=== PATIENT | female | born 1990 | race Caucasian/White ===

== ENCOUNTER 2017-01-11 07:27 | Outpatient (CLI) | payer OTHER, MEDICAID ==
[2017-01-11 19:50] LABS: THYROID STIMULATING HORMONE 8.33 uIU/mL (0.34-5.60)
== END 2017-01-11 07:28 | disposition home or self-care (01) ==
LOC: LAB.N 07:27
PROVIDERS: ATTEND Nurse Practitioner Family
DX: E03.9 Hypothyroidism, unspecified (principal)
CPT/HCPCS: 36415; 84439; 84443

== ENCOUNTER 2017-11-14 18:02 | Outpatient (CLI) | payer OTHER, MEDICAID ==
[2017-11-14 18:42] LABS: BILIRUBIN,URINE NEGATIVE (NEGATIVE); GLUCOSE, URINE (UA) NEGATIVE (NEGATIVE); KETONES,URINE (UA) TRACE mg/dL (NEGATIVE); LEUKOCYTE ESTERASE, URINE NEGATIVE (NEGATIVE); MUDS CUTOFF CONCENTRATIONS CUTOFF CONC BELOW:; NITRITE,URINE NEGATIVE (NEGATIVE); OCCULT BLOOD,URINE NEGATIVE (NEGATIVE); PROTEIN,URINE TRACE mg/dL (NEGATIVE); UROBILINOGEN,URINE 0.2 (NORMAL) E.U./dL (NORMAL)
[2017-11-14 18:43] LABS: BASOPHILS % (AUTO) 0.4 %; EOSINOPHILS % (AUTO) 0.4 %; HGB - HEMOGLOBIN 13.3 g/dL (12.0-16.0); LYMPHOCYTES % (AUTO) 19.4 %; MEAN CORPUSCULAR HEMOGLOBIN 31.2 pg (27.0-31.0); MEAN CORPUSCULAR VOLUME 91.6 fL (81.0-99.0); MEAN PLATELET VOLUME 8.8 fL (7.9-10.8); MONOCYTES # (AUTO) 0.8 10^3/uL (0.0-1.0); MONOCYTES % (AUTO) 7.8 %; NEUTROPHILS # (AUTO) 7.4 10^3/uL (1.5-6.6); PLT - PLATELET COUNT 409 10^3/uL (130-450); RED BLOOD COUNT 4.25 10^6/uL (4.20-5.40); RED CELL DISTRIBUTION WIDTH 12.7 % (12.0-15.0); WHITE BLOOD COUNT 10.3 x10^3/uL (4.8-10.8)
[2017-11-14 18:54] LABS: AMPHETAMINE SCREEN,URINE NEGATIVE (NEGATIVE); BACTERIA,URINE None Seen /HPF (None Seen); BENZODIAZEPINES SCREEN, URINE NEGATIVE (NEGATIVE); CLARITY,URINE CLEAR (CLEAR); COCAINE SCREEN URINE NEGATIVE (NEGATIVE); METHADONE SCREEN, URINE NEGATIVE (NEGATIVE); METHAMPHETAMINES SCREEN, URINE NEGATIVE (NEGATIVE); OPIATE SCREEN, URINE NEGATIVE (NEGATIVE); OXYCODONE SCREEN, URINE NEGATIVE (NEGATIVE); PROPOXYPHENE SCREEN, URINE NEGATIVE (NEGATIVE); RBC,URINE 0-5 /HPF (0-5); SQUAMOUS EPITHELIAL CELL,UR FEW Squamous (<= Few); TRICYCLIC ANTIDEPRESSANT,URINE NEGATIVE (NEGATIVE)
[2017-11-15 10:39] LABS: HEPATITIS B SURFACE ANTIGEN NON-REACTIVE (NON-REACTIVE); HEPATITIS C ANTIBODY NON-REACTIVE (NON-REACTIVE)
[2017-11-15 18:26] LABS: HIV AG/AB 4TH GEN NON-REACTIVE (NON-REACTIVE)
== END 2017-11-14 18:03 | disposition home or self-care (01) ==
LOC: LAB 18:02
PROVIDERS: ATTEND Nurse Practitioner Obstetrics & Gynecology
DX: Z36.9 Encounter for antenatal screening, unspecified (principal)
CPT/HCPCS: 36415; 80306; 81001; 81599; 85025; 86592; 86762; 86803; 86850; 86900; 86901; 87340; 87389

== ENCOUNTER 2017-11-15 13:01 | Outpatient (CLI) | payer OTHER, MEDICAID ==
--- NOTE | 2017-11-16 10:13 | Ultrasound Report ---
OB ULTRASOUND: 11/15/2017 CLINICAL INDICATION: anatomy, late care. TECHNIQUE: Real-time scanning was performed with contracts representative static images obtained. LAST MENSTRUAL PERIOD:between 03/07/2017 -04/05/2017 - unknown Clinical Age: -- US Age: 34 weeks 1 day EFW Hadlock: 2321 grams Heart Rate: 135 bpm US EDC: 12/26/2017 BPD Hadlock: 33 weeks 4 days; Mean mm 84 HC Hadlock: 34 weeks 2 days; Mean mm 307 AC Hadlock: 33 weeks 3 days; Mean mm 294 FL Hadlock: 35 weeks 0 days; Mean mm 68 Presentation: cephalic Placental Location: anterior Cervical Length: TA 3.6 cm Amniotic Fluid: AURELIO 15.8 cm; subjectively normal; MVP 5.9 cm FINDINGS There is a single viable intrauterine gestation, in cephalic presentation. heart rate is 135 BPM. The placenta is anterior, without evidence of previa. Amniotic fluid volume is subjectively normal, with a deepest pocket of 5.9 cm. By size, the fetus measures 34 weeks 1 day (uncertain LMP). Estimated weight by Hadlock method is 2321 grams. The following anatomic structures were visualized and appear normal: The intracranial contents, including the ventricles; the lips and orbits; the spine; the heart, including 4 chamber view and left ventricular outflow tract, and diaphragm; the abdominal contents, including the stomach, the bilateral kidneys, and urinary bladder, as well as a normal 3 vessel cord insertion. anatomy is limited by late dates and position, with the cerebellum, hands, right ventricular outflow tract, situs, and lower leg/foot relationships not well visualized. No free fluid or adnexal lesion is appreciated. IMPRESSION: SINGLE VIABLE INTRAUTERINE GESTATION, MEASURING 34 WEEKS 1 DAY BY SIZE. LIMITED ANATOMIC SURVEY, WITH NO GROSS ABNORMALITY APPRECIATED. TD: 11/15/2017 14:52 [facility]ENTERMatt
== END 2017-11-15 13:02 | disposition home or self-care (01) ==
LOC: DI 13:01
PROVIDERS: ATTEND Nurse Practitioner Obstetrics & Gynecology
DX: Z36.9 Encounter for antenatal screening, unspecified (principal)
CPT/HCPCS: 76811

== ENCOUNTER 2017-11-21 08:00 | Outpatient (CLI) | payer OTHER | END 2017-11-21 08:01 | LOC: LAB.R 08:00 | PROVIDERS: ATTEND Registered Nurse | DX: Z34.83 Encounter for supervision of other normal pregnancy, third trimester (principal); E03.9 Hypothyroidism, unspecified | CPT/HCPCS: 87081; 87491; 87591 ==

== ENCOUNTER 2017-11-28 10:10 | Outpatient (CLI) | payer OTHER, MEDICAID ==
[2017-11-28 10:49] LABS: ALBUMIN 2.9 g/dL (3.2-5.5); ALBUMIN/GLOBULIN RATIO 0.6 (1.0-2.2); BILIRUBIN,TOTAL 0.5 mg/dL (0.2-1.0); CALCIUM 9.6 mg/dL (8.5-10.3); CREATININE 0.7 mg/dL (0.4-1.0); TOTAL PROTEIN 7.4 g/dL (6.7-8.2)
== END 2017-11-28 10:11 | disposition home or self-care (01) ==
LOC: LAB 10:10
PROVIDERS: ATTEND Nurse Practitioner Obstetrics & Gynecology
DX: L29.9 Pruritus, unspecified (principal)
CPT/HCPCS: 36415; 80053; 82239

== ENCOUNTER 2017-11-29 11:02 | Outpatient (CLI) | payer OTHER, MEDICAID | END 2017-11-29 11:03 | disposition critical access hospital (66) | LOC: EMS 11:02 | PROVIDERS: ATTEND Surgery | DX: R10.9 Unspecified abdominal pain (principal); O99.89 Other specified diseases and conditions complicating pregnancy, childbirth and the puerperium | CPT/HCPCS: A0425; A0427 ==

== ENCOUNTER 2017-11-29 11:23 | Inpatient (IN) | payer OTHER, MEDICAID ==
[2017-11-29] MEDS ORDERED: LACTATED RINGERS 1,000 ML IV ONE ×2 (12:12→12:21)
--- NOTE | 2017-11-29 12:17 | HISTORY & PHYSICAL EXAMINATION ---
Admit History - Instructions [place]/Slash: -Left hand click circles element as positive or present. -Right hand click slashes element as negative or not present. - Visit Reason Visit Reason: Contractions - : 1 Parity: 0 Premature: 0 Ectopic: 0 : 0 Care: positive: [facility] Risk/History: positive: Other (Limited care) Complications This : positive: <than 3 visits Smoking Status: Never smoker - Mother's Labs Mother's RH: positive: Negative GBS: positive: Group B Strep Positive Rubella Status: positive: Non-immune - Other Maternal History Other Maternal History: HPI: This 27yo @ 37.2 wks gestation by 34 wk U/S. She presents via ambulance with c/o contractions every 10 minutes. She reports +FM. Denies VB or Lof. She reports contractions every 10 minutes and rating pain of contractions 10/10 pain. LMP: Unsure - 03/2017 Initial ultrasound consistent with 03/2017 dating Labs A pos, antibody neg Hgb: 13.3 Hct:39.0 Rubella nonimmune HIV neg Hep C neg PLT 409 RPR nonreactive Hep B non-reactive GC/CT negative AST: 49 ALT: 88 Bile Acids: Pending GBS positive PMHx: Vulnerable adult Hypothyroidism per patient Poor Historian Surgical Hx: None reported Medications: Levothyroxine - unsure dosage. vitamin U/S: anterior placenta, no previa. AURELIO subjectively normal. EFW 2300g. FAS WNL however multiple systems were not well visualized due to advanced gestation Physical Exam: Lungs CTAB, Heart RRR w/o M/G/R. Bilateral LEs no edema. Abdomen soft, gravid, nontender. Potential cognitive delay. Poor hygiene. SVE: 2/50/-2, vertex, BOW intact FHR baseline 140, moderate variability, + accels, repeat variable decelerations to the 120s. Improved variability and no decelerations noted after initiation of fluid bolus. A: 27yo with 37.2wk IUP Prodromal labor Concerning strip with deceleration from 130s into the 120s Complex social situation Vulnerable adult GBS positive P: Dr. Pack consulted due to recurrent late deceleration Initiation of 1000mL of IV fluid bolus Initiation of penicillin for GBS prophylaxis CPS consult at delivery Meds/Allgy - Home Medications Home Medications: Ambulatory Orders Medication Instructions Recorded Confirmed Lamivudine/Zidovudine 1 each PO BID #60 tablet 09/23/14 [Lamivudine-Zidovudine Tablet] Levothyroxine [Synthroid] 75 mcg PO DAILY 09/23/14 09/23/14 - Allergies Allergies/Adverse Reactions: Allergies Allergy/AdvReac Type Severity Reaction Status Date / Time No Known Drug Allergies Allergy Verified 09/23/14 20:35 Physical - Abdominal Exam Vital Signs: Temp Pulse Resp BP Pulse Ox 37 C 82 130/79 97 11/29/17 11:36 11/29/17 11:36 11/29/17 11:36 11/29/17 11:36
[2017-11-29] MEDS ORDERED: SODIUM CHLORIDE FLUSH 0.9% 10 ML SYRINGE ONE (12:21)
--- NOTE | 2017-11-29 12:37 | CONSULTATION NOTE ---
Referring Provider [facility] Ref[facility] Provider[facility] Consult Date: 11/29/17 Chief Complaint - Chief Complaint Chief Complaint: Late decelerations History - Past Medical History Endocrine/Autoimmune: reports: HyPOthyroidism - POLST Patient has POLST: No Meds/Allgy - Home Medications Home Medications: Ambulatory Orders Medication Instructions Recorded Confirmed Lamivudine/Zidovudine 1 each PO BID #60 tablet 09/23/14 [Lamivudine-Zidovudine Tablet] Levothyroxine [Synthroid] 75 mcg PO DAILY 09/23/14 09/23/14 - Allergies Allergies/Adverse Reactions: Allergies Allergy/AdvReac Type Severity Reaction Status Date / Time No Known Drug Allergies Allergy Verified 09/23/14 20:35 Exam - Vital Signs Vital Signs: Vital Signs x48h Temp Pulse BP Pulse Ox 11/29/17 11:36 98.6 F 82 130/79 97 Conclusion/Plan - Diagnosis Diagnosis: Late decelerations - Other Other Results/Comments: 27 yo with a 37w2d IUP Prodromal labor (50/-2) Concerning heart tracing GBS negative Vulnerable adult-- will need to call manager social work and CPS after delivery Discussed with the patient the possibility of a delivery if fetus shows signs of a nonreassuring tracing Recommend fluid bolus and continued monitoring Rule out labor Consult dictated: [id number]
[2017-11-29] MEDS ORDERED: SODIUM CHLORIDE FLUSH 0.9% 10 ML SYRINGE IVP PRN (14:38)
--- NOTE | 2017-11-29 14:46 | PROVIDER PROGRESS NOTE ---
Subjective - Subjective Subjective: S: Breathing through contractions. David supportive at the bedside. O: FHR baseline 130s, moderate variability with some minimal variability present. + accels, occasional late decelerations, occasional early decelerations , occasional variable decelerations. Contractions palpate moderate every 2-3 minutes lasting 60-90 seconds with soft resting tone. SVE 4/90/-2, soft, mid- position, vertex, BOW intact A: 27yo @ 37.2 weeks gestation by 34 wk U/S GBS positive Vulnerable adult Potential cognitive delay Complex social situation P: Admit to L&D for management. Initiate penicillin for GBS prophylaxis Dr. Pack consulted and aware of patient status. Continuous monitoring CPS consult at delivery. Epidural per maternal request. Objective - Vital Signs/Intake & Output Vital Signs: Vital Signs x48h Temp Pulse Resp BP Pulse Ox 11/29/17 12:59 84 20 118/77 98 11/29/17 11:36 37 C 82 130/79 97
[2017-11-29] MEDS ORDERED: LACTATED RINGERS 1,000 ML IV SCH (15:00)
[2017-11-29] MEDS ORDERED: PENICILLIN G POTASSIUM 5,000,000 UNIT in SODIUM CHLORIDE 0.9% MINIBAG 100 ML IV ONE (15:00)
[2017-11-29 15:01] LABS: BASOPHILS # (AUTO) 0.1 10^3/uL (0.0-0.1); EOSINOPHILS # (AUTO) 0.1 10^3/uL (0.0-0.7); EOSINOPHILS % (AUTO) 0.4 %; HGB - HEMOGLOBIN 12.6 g/dL (12.0-16.0); LYMPHOCYTES # (AUTO) 1.8 10^3/uL (1.5-3.5); LYMPHOCYTES % (AUTO) 14.6 %; MEAN CORPUSCULAR HEMOGLOBIN 31.4 pg (27.0-31.0); MEAN CORPUSCULAR HGB CONC 34.3 g/dL (32.0-36.0); MEAN CORPUSCULAR VOLUME 91.4 fL (81.0-99.0); MEAN PLATELET VOLUME 8.9 fL (7.9-10.8); MONOCYTES # (AUTO) 0.8 10^3/uL (0.0-1.0); MONOCYTES % (AUTO) 6.2 %; NEUTROPHILS # (AUTO) 9.5 10^3/uL (1.5-6.6); NEUTROPHILS % (AUTO) 77.8 %; PLT - PLATELET COUNT 330 10^3/uL (130-450); RED BLOOD COUNT 4.02 10^6/uL (4.20-5.40); WHITE BLOOD COUNT 12.3 x10^3/uL (4.8-10.8)
--- NOTE | 2017-11-29 15:33 | CONSULTATION NOTE ---
DATE OF SERVICE: 11/29/2017 Physician: Kaylie Pack DO IDENTIFICATION: A 27-year-old G1, P0, with a 37 and 2/7 week intrauterine . EDC is 12/18/2017 established by a 34 week ultrasound. HISTORY OF PRESENT ILLNESS: She is a patient of [facility], who presented via ambulance today. She noted contractions at work and was concerned about the well being of her baby. Her has been remarkable for late care. She did not realize that she was and finally presented to us on 11/14/2017 with unsure LMP. She is also a poor historian and is very concerning in being a vulnerable adult. In any event, her ultrasound of that day revealed a single viable intrauterine at 34 weeks, 4 days and EDC of 12/18/2017. There was no placenta previa noted and the AURELIO was within normal limits. Patient was taken to triage where it was of concern that her baby was having some late decelerations. I personally reviewed the strip and saw that this fetus is baseline in the 130s, with good long-term variability and there were accels. However, there are very subtle late decelerations to the 120s. So far they are occurring every 3-7 minutes. She is having irregular contractions occurring perhaps every 5 minutes. Cervical examination showed that she was 2, 50 and -2. Baby was noted to be vertex. I spoke to patient who was alone in her triage room. I discussed with her my concern about the late decelerations and the baby not tolerating labor given her cervical examination. I did discuss with her that it may be in her and her baby's best interest to have a delivery in order to have a healthy mom and baby. I discussed with patient in detail what a delivery is. I explained to her the risks, benefits, alternatives, indications, expectations of surgery. Included in our discussion were the risk of hemorrhage, infection, damage to surrounding organs. All of her questions were answered to her satisfaction, she verbalized her understanding. I told patient that I and Carine would be carefully monitoring the strip and will intervene as necessary. PAST MEDICAL HISTORY 1. Vulnerable adult with limited intellectual capacity. 2. Poor historian. 3. Hypothyroidism. PAST SURGICAL HISTORY: None. ALLERGIES: NO KNOWN DRUG ALLERGIES. MEDICATIONS: None. SOCIAL HISTORY: Very complex. 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 The father of the baby is noted to be an older adult male named Wilton. Wilton is actually currently to a woman named Juice. It sounds like Wilton and his have children with their relationship and with other individuals. However, it does not sound like Wilton or Juice have custody of their children. It is my understanding that Wilton' , Juice, intends to adopt this baby. PAST OBSTETRICAL HISTORY: Current. PAST GYNECOLOGICAL HISTORY: She denies any abnormal Pap smears or sexually transmitted diseases. FAMILY HISTORY: Unknown. REVIEW OF SYSTEMS: She denies any nausea, vomiting, fevers, chills, diarrhea or constipation. PHYSICAL EXAMINATION VITAL SIGNS: Temperature is 98.6, heart rate 82, blood pressure 130/79, O2 saturation 97%. GENERAL: Patient is a well-developed, well-nourished, female, in no apparent distress. She does wince when she experiences a contraction. HEENT: Within normal limits. She does have red hair. ABDOMEN: Gravid, nontender. Estimated weight is 2800 grams. LABORATORY DATA: She is A positive, antibody screen negative. HIV negative. Rubella nonimmune. Hemoglobin and hematocrit were 13.3 and 39.0 on 11/14/2017. Her platelet count was 409. RPR is nonreactive. Hepatitis B surface antigen is nonreactive. Chlamydia and gonorrhea were negative. GBS is positive. Thyroid function tests were within normal limits. 11/24/2017 labs show creatinine 0.7, glucose 76. Potassium 4.0 , ALT 88, AST of 49, bile acids are pending. U-tox was negative 11/15/2017. OB anatomical survey revealed a 34-week, 1 day intrauterine with EFW of 2321 grams and a heart rate of 135 beats per minute. EDC is 2017. Anterior placenta. A transabdominal cervix is 3.6 cm, AURELIO 15.8 cm with a most vertical pocket of 5.9 cm. The anatomical survey in and of itself was within normal limits; however, the cerebellum, hands, right ventricular outflow tract, situs and lower leg and foot relationships were not well visualized. ASSESSMENT 1. A 27-year-old G1, P0 with a 37 and 2/7 week intrauterine . 2. Prodromal labor. 3. Concerning strip with subtle late decelerations from the 130s to the 120s. 4. GBS positive. 5. Vulnerable adult with a complex social situation. 6. Patient with questionable hypothyroidism. PLAN 1. We will continue monitoring the patient. 2. Anticipated giving a fluid bolus. 3. We will continue to monitor the patient. If the fetus shows definite signs of a nonreassuring tracing we will proceed to immediate delivery. However, should the fetus have improvement with further surveillance, we will treat as appropriate. 4. Convention Planner and Child Protective Services are to be involved after delivery of the baby. 5. We will call anesthesia and inform them of a potential delivery. TD: 11/29/2017 15:32 WILLIAMS
--- NOTE | 2017-11-29 16:19 | PROVIDER PROGRESS NOTE ---
Labor Progress Note - Uterine Monitoring Uterine Monitoring Mode: positive: External toco Contraction Frequency (min/apart): Q1-2 (spontaneous) Contraction Intensity: positive: Moderate to strong Uterine Resting Tone: positive: Soft - Monitoring Monitor Mode: positive: External ultrasound, Spiral electrode (Placed after deceleration to 40's) Heart Rate Variability: positive: Moderate (6-25 bmp) Accelerations: positive: Present, 15x15 Decelerations: positive: Late (After SROM) Strip Review: positive: Category II - Vaginal Exam Dilation (in cm): 7 Station: -1 - Labor Progress Note Labor Progress Note/Additional Text: 27 yo with a 37w2d IUP Active labor GBS positive, 1st dose of PCN (5 million units) in at 16:10. 2nd dose (2.5 million units) due at 20:10. SROM- clear Late deceleration due to SROM FSE placed FHT's back up after intrauterine resuscitation with rotation, O2 Anesthesia called for epidural placement Closely monitor. Proceed to CD if NRFHT's Need social work professor and CPS after delivery Will be available for back up of midwifery
--- NOTE | 2017-11-29 16:30 | PROVIDER PROGRESS NOTE ---
Labor Progress Note - Uterine Monitoring Uterine Monitoring Mode: positive: External toco Contraction Frequency (min/apart): 2-4 Contraction Intensity: positive: Strong Uterine Resting Tone: positive: Soft - Monitoring Monitor Mode: positive: External ultrasound Heart Rate Baseline: 130 Heart Rate Variability: positive: Moderate (6-25 bmp) Accelerations: positive: Present, 15x15 Decelerations: positive: Late, Variable - Vaginal Exam Dilation (in cm): 8 Effacement (%): 100 Station: -1 Cervical Position: Anterior - Labor Progress Note Labor Progress Note/Additional Text: S: Pt breathing through contractions and tolerating well. Requesting epidural. David and Wilton at bedside. David states "What about the test? Ask about the test." Wilton states "what about paternity test?" "I am pretty sure it's mine but I don' t want to get into a situation in a couple of years". O: FHR baseline 130s, moderate variability, + accels, occasional variable decelerations, occasional late decelerations. Prolonged late deceleration to 70bpm with immediate acceleration and return to baseline with moderate variability immediately following maternal SROM. SROM noted to be a moderate amount of clear fluid. FSE placed due to difficulty picking up heart rate with external monitor. Patient rotated and O2 applied. Dr. Pack, attending physician to the bedside. SVE 8/100/-1, anterior, soft. Anesthesia called for placement of epidural. A: 27yo at 37.2wks gestation by 34 week ultrasound Active labor SROM moderate amount of clear fluid Category II tracing Continuous monitoring via FSE
[2017-11-29] MEDS ORDERED: fent/BUPIV 2 MCG/0.125% 250 ML EP ONE (16:36)
[2017-11-29] MEDS ORDERED: OXYTOCIN/SODIUM CHLORIDE 500 ML IV ONE (17:00)
[2017-11-29] MEDS ORDERED: OXYTOCIN/SODIUM CHLORIDE 250 ML IV ONE (17:29)
--- NOTE | 2017-11-29 17:56 | DELIVERY NOTE ---
Delivery Note - Labor Labor: positive: Spontaneous - Delivery Method Delivery Method: positive: Spontaneous vaginal delivery - Presentation Presentation: positive: Vertex, PERRY - left occiput anterior - Nuchal Cord Nuchal Cord: positive: Present - Amniotic Fluid Description Amniotic Fluid Description: positive: Clear - Episiotomy Type Episiotomy Type: positive: None - Laceration Laceration: positive: 1st degree - Suture Suture Type: positive: Vicryl Suture Size: positive: 3-0 - Delivery Outcome Delivery Outcome: positive: Livebirth - [place]: positive: Placed in direct skin contact with mother, Bulb syringe, Stimulated, Warmed, [place] used, Warmer used sex: positive: Female - Cord Cord: positive: 3 vessels - Placenta Placenta: positive: Intact, Spontaneous - Estimated Blood Loss Estimated Blood Loss (in cc): 250 - Post Delivery Events Post Delivery Events: positive: No post delivery events - Delivery Comments (Free Text/Narrative) Delivery Comments (Free Text/Narrative): Labor: This 27yo by 34 weeks U/S presented at 1110 by ambulance after complaining of contractions at work. Cervix was 2/50/-2, vertex, and membranes were intact. She was monitoring for 2 hours and repeat SVE was 4/90/-2, vertex, soft, and membranes remained intact. She was admitted to labor and delivery for expectant management. Throughout labor FHR demonstrated an overall category II heart rate pattern with FHR baseline 140s, moderate variability, +accels, occasional late decelerations, occasional early decelerations, and occasional variable decelerations. FSE was attached following SROM, moderate amount of clear fluid, as the FHR decreased to 60 bpm and there was some difficulty tracing the heart rate by external ultrasound. Patient was rotated and O2 was administered by mask. SVE was 8/100/-1 and anesthesia was called to the bedside for placement of an epidural per patient request. Epidural placed without difficulty. Dr. Pack, attending physician, aware of patient status throughout labor course and in agreement with continued plan of care. Normal of viable female infant at 1659 on 11/29/2017. The was placed on maternal abdomen, stimulated, dried, and placed skin to skin. O2 was placed near baby's face via maternal face mask. Bulb syringe was used to clear nares and mouth. 's were 6/8 at 1 and 5 minutes respectively. The umbilical cord was doubly clamped and cut by FOB at 3 minutes of life. Cord blood was obtained. Placenta delivered spontaneously and intact at 1703. 3VC. Pitocin administered via IV for hemostasis. EBL 250mL. Uterine fundus fimr and there is no excessive bleeding. The perineum, vagina, cervix were inspected and found to have a first degree midline laceration. Vaginal examination following repair was done. Tissues well approximated. Baby was moved to infant warmer due to increased heart rate and grunting for evaluation by OB RN and respiratory therapy whom were present for delivery. The baby was monitored at the infant warmer and recovered well. placed skin to skin. Family bonding well. youth services specialist consult ordered and plan to initiate phone call to CPS. Both mother and baby were left in stable condition.
[2017-11-29] MEDS ORDERED: PENICILLIN G POTASSIUM 2,500,000 UNIT in SODIUM CHLORIDE 0.9% 100ML 100 ML IV SCH (19:00)
[2017-11-29] MEDS: ACETAMINOPHEN 500 MG TABLET PO PRN (20:51)
[2017-11-29] MEDS: IBUPROFEN 800 MG TABLET PO PRN (20:51)
[2017-11-29] MEDS: SODIUM CHLORIDE FLUSH 0.9% 10 ML SYRINGE IVP SCH (21:30)
[2017-11-29] MEDS: WITCH HAZEL/GLYCERIN 1 EACH MED..PAD TOP PRN (23:47)
[2017-11-29] MEDS: HYDROCORTISONE/PRAMOXINE 10 GM PR PRN (23:47)
[2017-11-30] MEDS: ACETAMINOPHEN 500 MG TABLET PO PRN ×2 (06:45→15:39)
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
[2017-11-30] MEDS: LACTATED RINGERS 1,000 ML IV SCH ×4 (11:12→21:27)
[2017-11-30] MEDS: IBUPROFEN 800 MG TABLET PO PRN ×2 (11:20→23:23)
[2017-11-30] MEDS: SODIUM CHLORIDE FLUSH 0.9% 10 ML SYRINGE IVP SCH ×3 (11:25→21:27)
[2017-11-30] MEDS: HYDROCORTISONE/PRAMOXINE 10 GM PR PRN (12:56)
[2017-12-01] MEDS: ACETAMINOPHEN 500 MG TABLET PO PRN ×2 (00:38→09:44)
[2017-12-01] MEDS: WITCH HAZEL/GLYCERIN 1 EACH MED..PAD TOP PRN (00:41)
[2017-12-01] MEDS: IBUPROFEN 800 MG TABLET PO SCH ×2 (09:44→16:52)
[2017-12-01] MEDS: LEVOTHYROXINE 125 MCG TABLET PO SCH (13:25)
--- NOTE | 2017-12-01 17:10 | PROVIDER PROGRESS NOTE ---
Subjective - Subjective Subjective: S: Seems to be bonding well with baby. Continues to laugh inappropriately. with some difficulty. Baby latches well with nipple shield. Pt expresses continued desires to give Wilton (FOB) custody of her baby. She reports her plan is to move in with Wilton and his David. She states her visit with CPS and APS were both good today. Bleeding decreased. Pain well controlled with ibuprofen. Reports she is tired but overall feeling well. O: Heart RRR w/o M/G/R. Lungs CTAB. Abdomen soft and non-tender. Fundus firm at U-2. Bilateral LE's no edema. Poor hygiene. A: 27yo -->P1 s/p TSVD of viable female infant Apparent cognitive delay P: Continue routine pp care and medications. [facility]. There is currently a CPS hold on the baby until Monday. Desires Nexplanon for contraception. Objective - Vital Signs/Intake & Output Vital Signs: Vital Signs x48h Temp Pulse Resp BP Pulse Ox 12/01/17 09:52 36.8 C 92 16 139/77 H 98 Intake & Output: Intake & Output 11/28/17 11/29/17 11/30/17 12/01/17 23:59 23:59 23:59 23:59 Intake Total 2350 Output Total 250 600 Balance 2100 -600 - Lab Results Fish Bones: 11/29/17 14:51
[2017-12-01] MEDS ORDERED: MEASLES,MUMPS & RUBELLA VACC 0.5 ML VIAL SUBQ ONE (18:00)
[2017-12-01] MEDS: PRENATAL VITAMIN TABLET PO SCH (20:14)
[2017-12-02] MEDS: IBUPROFEN 800 MG TABLET PO SCH ×3 (01:29→15:23)
[2017-12-02] MEDS: SODIUM CHLORIDE FLUSH 0.9% 10 ML SYRINGE IVP SCH ×3 (04:23→04:25)
[2017-12-02] MEDS: LACTATED RINGERS 1,000 ML IV SCH ×2 (04:24→04:25)
[2017-12-02] MEDS: LEVOTHYROXINE 125 MCG TABLET PO SCH (06:58)
[2017-12-02 08:15] VITALS: BP 127/76
[2017-12-02] MEDS: PRENATAL VITAMIN TABLET PO SCH (10:07)
--- NOTE | 2017-12-02 10:24 | Discharge Plan ---
Discharge Plan Disposition: 01 Home, Self Care Condition: Good Diet: Regular Activity Restrictions: No Restrictions Shower Restrictions: No Driving Restrictions: No Weight Bearing: Full Weight No Smoking: If you smoke, Please STOP! Call for help. Follow-up with: Carine Sorto CNM, ARNP [Provider Admit Priv/Credential] -
--- NOTE | 2017-12-02 10:42 | PROVIDER PROGRESS NOTE ---
Subjective - Subjective Subjective: S: Bonding well with baby. with nipple shield. Baby has lost 8% of her weight and they are planning to develop a feeding plan with Dr. Cooper today. Expressing colostrum and using it to supplement the baby. Bleeding decreased and is light. Pain well controlled with ibuprofen. Some tenderness noted at perineum but she reports improvement with tucks and epifoam. David supportive at the bedside. O: Hgb 12.6; BP 127/76, T 36.8. Heart RRR w/ o M/G/R, Lungs CTAB. Abdomen soft and nontender with fundus firm at U-2. Perineum intact and repair without edema. Light lochia rubra. Bilateral LE's trace edema. A: 27yo -->P1 PPD#3 s/p TSVD of viable female Developmental delay - undiagnosed CPS hold on infant until Monday12/04/2017 P: Reviewed self care and warning signs. Rx provided for ibuprofen 600mg PO q6 hours PRN pain #30 with 2 refills. Nexplanon in patient's left arm for contraception. Discharge patient to boarder mom status. She plans to f/u with myself at [facility] in 1 week. Pt verbalized understanding and agrees to above plan. Denies further questions or concerns today. Objective - Vital Signs/Intake & Output Vital Signs: Vital Signs x48h Temp Pulse Resp BP Pulse Ox 12/02/17 08:10 36.8 C 76 16 127/76 99 12/02/17 04:55 36.7 C 66 17 117/71 99 Intake & Output: Intake & Output 11/29/17 11/30/17 12/01/17 12/02/17 23:59 23:59 23:59 23:59 Intake Total 2350 Output Total 250 600 Balance 2100 -600 - Lab Results Fish Bones: 11/29/17 14:51
[2017-12-02] MEDS ORDERED: HYDROCORTISONE 1% CREAM 28 GM TUBE PR PRN (10:43)
--- NOTE | 2017-12-02 15:26 | Labor Flowsheet ---
Labor Flowsheet Datetime Report Generated by CPN: 12/02/2017 15:26 Datetime: 12/02/2017 14:45 VITAL SIGNS NBP Sys/Brandi/Mean (mmHg): 102 : 85 : 88 Pulse: 89 LaborFlag: Labor Datetime: 12/01/2017 09:34 SpO2 (%): 98 Datetime: 11/29/2017 17:16 COMMUNICATION Communication: Call/Page Placed to Provider Provider Notified (Name): Dr. Hi Datetime: 11/29/2017 17:07 Patient Care Comments: repair Datetime: 11/29/2017 17:03 STAGE 2 Stage 2 Comments: pit up Datetime: 11/29/2017 16:45 UTERINE ACTIVITY Monitor Mode: External Frequency (min): 2-3 Quality: Strong Duration (sec): 60+ Pattern: Normal: <= 5 Contractions in 10 Minutes Resting Tone (Palpate): Relaxed ASSESSMENT A Monitor Mode: External US FHR Baseline Changes: No Baseline Change Variability: Moderate 6-25 bpm Accelerations: 15X15 Decelerations: Early; Late; Variable Actions for Decelerations: Provider Notified Category: Category II Communication Comments: Carine in room Datetime: 11/29/2017 16:41 Anesthesia Comments: test dose negative Datetime: 11/29/2017 16:40 Epidural Procedure: Test Dose Datetime: 11/29/2017 16:34 ANESTHESIA Epidural Positioning: Sitting Datetime: 11/29/2017 16:09 Notification Reason: Status; Labor Status; Pain Datetime: 11/29/2017 16:05 VAGINAL EXAM Dilatation (cm): 9.0 Effacement (%): 100 Station: -1 Exam by: layne Vaginal Bleeding: Scant Procedures: Sterile Vag Exam Datetime: 11/29/2017 16:03 Membrane Status: Ruptured Membranes Rupture Method: Spontaneous Amniotic Fluid Color: Clear Amniotic Fluid Amount: Moderate Amniotic Fluid Odor: Normal Datetime: 11/29/2017 16:01 FHR Baseline Rate : 125 Datetime: 11/29/2017 15:29 Stage of : Labor Contraction Comments: mild to moderate contractions PAIN Pain Presence: Intermittent Pain Type: Cramping Pain Location: Abdomen Pain Relief Measures: Comfort Measures Pain Coping: Talking Through Contractions; Breathing Through Contractions; Declines Medication or E pidural Pain Assessment Comments: Pt. states she wants to wait MATERNAL ASSESSMENT Level of Consciousness: Fully Conscious DTR's/Clonus: DTRs 2+ Headache: Denies Breath Sounds, Left: Clear and Equal Breath Sounds, Right: Clear and Equal Nausea/Vomiting: Present RUQ Epigastric Pain: Denies PATIENT CARE Oxygen Method: Room Air Patient Position/Activity: Right Lateral Comfort Measures: Breathing/Relaxation; Back Rub Given; Family Support
--- NOTE | 2017-12-12 12:20 | DISCHARGE SUMMARY ---
Physician: MEENA Munoz DATE OF ADMISSION: 11/29/2017 DATE OF DISCHARGE: 12/02/2017 DIAGNOSES ON ADMISSION 1. A 27-year-old G1, P0 at 37.2 weeks gestation by 34-week ultrasound. 2. Early active labor. 3. Complex social situation. 4. Limited care/late to seek care, vulnerable adult. 5. Group B strep positive. DIAGNOSES ON DISCHARGE 1. A 27-year-old G1, P1-0-0-1, status post spontaneous vaginal delivery on 11/29/2017. 2. Normal recovery. 3. Complex social situation with Social Service consult and Child Protective Services evaluation. 4. Administrative hold placed on baby by Child Protective Services. BRIEF HISTORY: She is a patient at [facility] who presented on 11/29/2017 with complaints of contractions. The patient was found to contract every 3-5 minutes, and her cervix was 2, 50, -2 vertex and membranes were intact. She was monitored for 2 hours and repeat SVE was 4, 90, -2 vertex and soft, and membranes remained intact. She was admitted to Labor and Delivery for expectant management. She spontaneously delivered a viable female at 1659 on 11/29/2017. Apgars were 6 and 8 at 1 and 5 minutes respectively. EBL was 250 mL. The perineum, vagina and cervix were inspected and found to have a first-degree midline laceration, which was repaired using 3-0 Vicryl in the usual fashion under sterile conditions. She has been doing well in her course. She is ambulating and tolerating a regular diet. She is urinating without difficulty and her lochia is normal. Her pain is well controlled with oral medications. She will be discharged to [facility] status today on day #3. She intends to follow up with myself at [facility] in 3 weeks for routine visit. She is given precautions to call if she has any worsening fevers, chills, abdominal pain, increased bleeding or foul smelling vaginal lochia. TD: 12/12/2017 12:11
== END 2017-12-02 14:50 | disposition home or self-care (01) | DRG 775 ==
LOC: WFO 11:23 → FBP 11:27 → WFO 14:37 → EEVIPCON 14:38 → FBP 14:38
PROVIDERS: ADMIT Nurse Practitioner Obstetrics & Gynecology; ATTEND Nurse Practitioner Obstetrics & Gynecology
PROC: 10E0XZZ Delivery of Products of Conception, External Approach (ICD-10-PCS; principal; 2017-11-29)
PROC: 0HQ9XZZ Repair Perineum Skin, External Approach (ICD-10-PCS; 2017-11-29)
DX: O99.824 Streptococcus B carrier state complicating childbirth (principal); O99.284 Endocrine, nutritional and metabolic diseases complicating childbirth; O76 Abnormality in fetal heart rate and rhythm complicating labor and delivery; O70.0 First degree perineal laceration during delivery; Z3A.37 37 weeks gestation of pregnancy; Z37.0 Single live birth
CPT/HCPCS: 36415; 85025; 99213

== ENCOUNTER 2018-06-05 15:24 | Emergency (ER) | payer MEDICAID, OTHER ==
[2018-06-05 15:30] VITALS: BP 109/68
[2018-06-05] MEDS ORDERED: TETANUS/DIPHTHERIA/PERTUSSIS 0.5 ML SYRINGE IM ONE (16:16)
--- NOTE | 2018-06-05 16:18 | ED Physician Documentation ---
PD HPI UPPER EXT INJURY - Stated complaint Stated Complaint: RT MIDDLE FINGER LAC - Chief complaint Chief Complaint: Laceration - History obtained from History obtained from: Patient - History of Present Illness Location: Right (Last night she cut her finger while carving a pumpkin. Tetanus is unknown.) Review of Systems Constitutional: denies: Fever, Chills Respiratory: reports: Reviewed and negative GI: reports: Reviewed and negative PD PAST MEDICAL HISTORY - Past Medical History Endocrine/Autoimmune: HyPOthyroidism - Past Surgical History Past Surgical History: No - Present Medications Home Medications: Ambulatory Orders Medication Instructions Recorded Confirmed Lamivudine/Zidovudine 1 each PO BID #60 tablet 09/23/14 [Lamivudine-Zidovudine Tablet] Levothyroxine [Synthroid] 75 mcg PO DAILY 09/23/14 09/23/14 - Allergies Allergies/Adverse Reactions: Allergies Allergy/AdvReac Type Severity Reaction Status Date / Time No Known Drug Allergies Allergy Verified 06/05/18 15:30 - Social History Does the pt smoke?: No Smoking Status: Never smoker Does the pt drink ETOH?: Yes Does the pt have substance abuse?: No - Immunizations Immunizations are current?: Yes - POLST Patient has POLST: No PD ED PE NORMAL - Vitals Vital signs reviewed: Yes - General General: Alert and oriented X 3, No acute distress - Extremities Extremities: Other (On the right middle finger there is a 1 cm laceration that kind of goes through the nail longitudinally and then just a bit out on the tuft. Nothing needs suturing.) - Neuro Neuro: Alert and oriented X 3, Normal speech Results - Vitals Vitals: Vital Signs - 24 hr 06/05/18 15:29 Temperature 36.4 C L Heart Rate 74 Respiratory 18 Rate Blood Pressure 109/68 O2 Saturation 98 Oxygen O2 Source Room air Departure - Departure Disposition: Home, Self Care Clinical Impression: Laceration Condition: Good Record reviewed to determine appropriate education?: Yes Instructions: ED Laceration Old Not Sutr
== END 2018-06-05 16:34 | disposition home or self-care (01) ==
LOC: ED 15:24
DX: S61.312A Laceration without foreign body of right middle finger with damage to nail, initial encounter (principal); W26.0XXA Contact with knife, initial encounter; Y93.89 Activity, other specified; Z23 Encounter for immunization
CPT/HCPCS: 90471; 99282; 99283

== ENCOUNTER 2018-07-01 16:24 | Emergency (ER) | payer MEDICAID ==
--- NOTE | 2018-07-01 17:30 | ED Physician Documentation ---
History of Present Illness - Stated complaint Stated Complaint: ANXIETY ISSUES - Chief complaint Chief Complaint: General - History obtained from History obtained from: Patient - History of Present Illness Timing: Last night (27-year-old woman whose been having trouble with anxiety since last night. She had a panic attack last night and today she has palpitations and shortness of breath. She is undergoing issues regarding the custody of her child, the child is currently in the custody of CPS.) Review of Systems Constitutional: denies: Fever, Chills Cardiac: reports: Palpitations. denies: Chest pain / pressure Respiratory: reports: Dyspnea. denies: Cough GI: denies: Abdominal Pain PD PAST MEDICAL HISTORY - Past Medical History Past Medical History: Yes Endocrine/Autoimmune: HyPOthyroidism - Past Surgical History Past Surgical History: No - Present Medications Home Medications: Ambulatory Orders Medication Instructions Recorded Confirmed Lorazepam [Ativan] 1 mg PO TID PRN #10 tablet 07/01/18 - Allergies Allergies/Adverse Reactions: Allergies Allergy/AdvReac Type Severity Reaction Status Date / Time No Known Drug Allergies Allergy Verified 07/01/18 16:29 - Social History Does the pt smoke?: No Smoking Status: Never smoker Does the pt drink ETOH?: Yes Does the pt have substance abuse?: No - Immunizations Immunizations are current?: Yes - POLST Patient has POLST: No PD ED PE NORMAL - Vitals Vital signs reviewed: Yes - General General: Alert and oriented X 3, No acute distress - Cardiac Cardiac: RRR, No murmur - Respiratory Respiratory: No respiratory distress, Clear bilaterally - Abdomen Abdomen: Non tender - Neuro Neuro: Alert and oriented X 3, Normal speech Results - Vitals Vitals: Vital Signs - 24 hr 07/01/18 07/01/18 16:26 17:39 Temperature 36.4 C L 36.7 C Heart Rate 84 89 Respiratory 18 16 Rate Blood Pressure 147/80 H 123/61 O2 Saturation 100 99 Oxygen O2 Source Room air - EKG (time done) 1729 Rate: Rate (enter#) (89) Rhythm: NSR [place]: Normal Intervals: Normal CT QRS: Normal Ischemia: Normal ST segments Computer interpretation: Agree with computer Departure - Departure Disposition: 01 Home, Self Care Clinical Impression: Anxiety Condition: Good Record reviewed to determine appropriate education?: Yes Instructions: ED Panic Attack Follow-Up: Roseanna Dougherty ARNP [Credentialed Staff Provider] - Within 1 week Prescriptions: Lorazepam [Ativan] 1 mg PO TID PRN #10 tablet PRN Reason: Anxiety Comments: Your blood pressure was elevated today on check into the emergency department. This does not mean that you have hypertension, it is a common phenomenon to come to the emergency department and have elevated blood pressure. I recommend that you see your primary care physician within the week to have it rechecked when you are feeling better.
[2018-07-01 17:43] VITALS: BP 122/60
== END 2018-07-01 17:42 | disposition home or self-care (01) ==
LOC: ED 16:24
DX: F41.9 Anxiety disorder, unspecified (principal); R03.0 Elevated blood-pressure reading, without diagnosis of hypertension; E03.9 Hypothyroidism, unspecified
CPT/HCPCS: 93005; 99283

== ENCOUNTER 2018-09-27 14:13 | Outpatient (CLI) | payer MEDICAID ==
[2018-09-27 20:10] LABS: HCG,QUALITATIVE BLOOD NEGATIVE
== END 2018-09-27 23:59 | disposition home or self-care (01) ==
LOC: LAB.N 14:13
PROVIDERS: ATTEND Nurse Practitioner Family
DX: E03.9 Hypothyroidism, unspecified (principal); N91.2 Amenorrhea, unspecified
CPT/HCPCS: 36415; 84443; 84703

== ENCOUNTER 2019-01-05 17:40 | Emergency (ER) | payer MEDICAID, OTHER ==
--- NOTE | 2019-01-05 17:54 | ED Physician Documentation ---
PD HPI UPPER EXT INJURY - Stated complaint Stated Complaint: WOUND LR ARM - Chief complaint Chief Complaint: Laceration - History obtained from History obtained from: Patient - History of Present Illness Location: Left, Forearm Type of injury: Laceration Where injury occurred: Home Timing - onset: Today Timing - details: Abrupt onset Associated symptoms: No: Weakness, Numbness, Tingling Similar symptoms before: Has not had sx before Recently seen: Not recently seen - Additonal information Additional information: Is a 28-year-old woman who presents with complaints that she ended up cutting herself in her left wrist today because she just "was not feeling okay. She started cutting herself 1 to 2 weeks ago and is done it 2 or 3 times. She believes she is doing this because of depression. She has been in contact with the [employer] Crisis line but does not have a current counselor. She denies taking anything that would have harmed her and has had not had any acute illnesses. She thinks she had her tetanus vaccine when she had her child in May 2018. 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 Review of Systems Constitutional: denies: Fever Nose: denies: Congestion Throat: denies: Sore throat Cardiac: denies: Chest pain / pressure Respiratory: denies: Dyspnea, Cough GI: denies: Abdominal Pain, Nausea, Vomiting, Diarrhea : denies: Dysuria, Frequency Psychiatric: reports: Depressed, Suicidal PD PAST MEDICAL HISTORY - Past Medical History Endocrine/Autoimmune: HyPOthyroidism - Past Surgical History Past Surgical History: No - Present Medications Home Medications: Ambulatory Orders Medication Instructions Recorded Confirmed Levothyroxine [Synthroid] 100 mcg PO QDAC 01/05/19 01/05/19 busPIRone [Buspar] 5 mg PO BID 01/05/19 01/05/19 - Allergies Allergies/Adverse Reactions: Allergies Allergy/AdvReac Type Severity Reaction Status Date / Time No Known Drug Allergies Allergy Verified 07/01/18 16:29 - Social History Does the pt smoke?: No Smoking Status: Never smoker Does the pt drink ETOH?: Yes Does the pt have substance abuse?: No - Immunizations Immunizations are current?: Yes - POLST Patient has POLST: No PD ED PE NORMAL - Vitals Vital signs reviewed: Yes - General General: Alert and oriented X 3, No acute distress, Well developed/nourished - HEENT HEENT: Atraumatic, PERRL, EOMI, Moist mucous membranes - Neck Neck: No adenopathy - Cardiac Cardiac: RRR, No murmur - Respiratory Respiratory: No respiratory distress - Abdomen Abdomen: Normal bowel sounds, Soft - Derm Derm: Normal color, Other (There are several linear superficial lacerations to the left forearm that are new. These are covered with a Band-Aid. There is evidence of some fresh scarring and healed wounds as well.) - Extremities Extremities: No deformity - Neuro Neuro: Alert and oriented X 3, No motor deficit, No sensory deficit, Normal speech - Psych Psych: Other (She has a flat affect but will randomly laugh inappropriately.) Results - Vitals Vitals: Vital Signs - 24 hr 01/05/19 01/05/19 01/06/19 17:43 18:28 00:12 Temperature 36 C L 37 C Heart Rate 82 82 84 Respiratory 14 14 15 Rate Blood Pressure 127/82 H 127/82 H 141/71 H O2 Saturation 96 96 Oxygen O2 Source Room air - Labs Labs: Laboratory Tests 01/05/19 01/05/19 01/05/19 18:08 18:08 18:40 WBC 10.1 RBC 4.72 Hgb 13.9 Hct 42.5 MCV 90.0 MCH 29.4 MCHC 32.7 RDW 13.8 Plt Count 461 H MPV 7.4 L Neut # (Auto) 7.3 H Lymph # (Auto) 2.1 Anson # (Auto) 0.6 Eos # (Auto) 0.1 Baso # (Auto) 0.1 Absolute Nucleated RBC 0.01 Nucleated RBC % 0.1 Sodium Potassium Chloride Carbon Dioxide Anion Gap BUN Creatinine Estimated GFR (MDRD) Glucose Calcium Total Bilirubin AST ALT Alkaline Phosphatase Total Protein Albumin Globulin Albumin/Globulin Ratio Lipase TSH Thyroxine (T4) Urine Color YELLOW Urine Clarity CLEAR Urine pH 5.5 Ur Specific [place] >=1.030 H >=1.030 H Urine Protein NEGATIVE Urine Glucose (UA) NEGATIVE Urine Ketones NEGATIVE Urine Occult Blood NEGATIVE Urine Nitrite NEGATIVE Urine Bilirubin NEGATIVE Urine Urobilinogen 0.2 (NORMAL) Ur Leukocyte Esterase SMALL H Urine RBC None Seen Urine WBC 6-10 H Ur Squamous Epith Cells MANY Squamous H Urine Bacteria Rare Ur Microscopic Review INDICATED Urine Culture Comments NOT INDICATED Urine HCG, Qual NEGATIVE Salicylates Urine Opiates Screen POSITIVE H Ur Oxycodone Screen NEGATIVE Urine Methadone Screen NEGATIVE Ur Propoxyphene Screen NEGATIVE Acetaminophen Ur Barbiturates Screen NEGATIVE Ur Tricyclics Screen NEGATIVE Ur Phencyclidine Scrn NEGATIVE Ur Amphetamine Screen NEGATIVE U Methamphetamines Scrn NEGATIVE U Benzodiazepines Scrn NEGATIVE Urine Cocaine Screen NEGATIVE U Cannabinoids Screen NEGATIVE Ethyl Alcohol 01/05/19 01/05/19 01/05/19 18:40 18:40 18:40 WBC RBC Hgb Hct MCV MCH MCHC RDW Plt Count MPV Neut # (Auto) Lymph # (Auto) [place] # (Auto) Eos # (Auto) Baso # (Auto) Absolute Nucleated RBC Nucleated RBC % Sodium 142 Potassium 3.9 Chloride 107 Carbon Dioxide 23 Anion Gap 12.0 BUN 14 Creatinine 0.8 Estimated GFR (MDRD) 87 L Glucose 140 H Calcium 9.4 Total Bilirubin 0.4 AST 25 ALT 32 Alkaline Phosphatase 117 Total Protein 8.4 H Albumin 4.1 Globulin 4.3 H Albumin/Globulin Ratio 1.0 Lipase 30 TSH 9.44 H Thyroxine (T4) 6.50 Urine Color Urine Clarity Urine pH Ur Specific [place] Urine Protein Urine Glucose (UA) Urine Ketones Urine Occult Blood Urine Nitrite Urine Bilirubin Urine Urobilinogen Ur Leukocyte Esterase Urine RBC Urine WBC Ur Squamous Epith Cells Urine Bacteria Ur Microscopic Review Urine Culture Comments Urine HCG, Qual Salicylates < 6.0 Urine Opiates Screen Ur Oxycodone Screen Urine Methadone Screen Ur Propoxyphene Screen Acetaminophen < 10 L Ur Barbiturates Screen Ur Tricyclics Screen Ur Phencyclidine Scrn Ur Amphetamine Screen U Methamphetamines Scrn U Benzodiazepines Scrn Urine Cocaine Screen U Cannabinoids Screen Ethyl Alcohol < 5.0 PD MEDICAL DECISION MAKING - ED course Complexity details: re-evaluated patient, d/w inbound sales consultant ED course: Patient did consult with the tele-psychiatrist. I spoke with him by Dr. Hernandez. He had a lot more background on her social situation and he has concerns that she will not contract for safety she is having recurrent thoughts of ending her life and she will not allow anyone to contact the roommate who will be with her. Patient will not voluntarily agree to admission so he recommended that she be of involuntary admit. Consult for [facility] has been placed. Patient did have a noted elevated TSH and I have added a free T3-T4 onto her labs for follow-up. She had a positive drug screen for opiates but salicylate and acetaminophen are normal. 1252: Care turned over to Dr Christopher.
[2019-01-05 18:16] LABS: MUDS CUTOFF CONCENTRATIONS CUTOFF CONC BELOW:
[2019-01-05 18:22] LABS: BILIRUBIN,URINE NEGATIVE (NEGATIVE); GLUCOSE, URINE (UA) NEGATIVE (NEGATIVE); KETONES,URINE (UA) NEGATIVE (NEGATIVE); LEUKOCYTE ESTERASE, URINE SMALL (NEGATIVE); NITRITE,URINE NEGATIVE (NEGATIVE); OCCULT BLOOD,URINE NEGATIVE (NEGATIVE); PH,URINE 5.5 PH (5.0-7.5); PROTEIN,URINE NEGATIVE (NEGATIVE); UROBILINOGEN,URINE 0.2 (NORMAL) E.U./dL (NORMAL)
[2019-01-05 18:24] LABS: CLARITY,URINE CLEAR (CLEAR); HCG UR QUAL NEGATIVE
[2019-01-05 18:35] LABS: AMPHETAMINE SCREEN,URINE NEGATIVE (NEGATIVE); BACTERIA,URINE Rare /HPF (None Seen); BENZODIAZEPINES SCREEN, URINE NEGATIVE (NEGATIVE); COCAINE SCREEN URINE NEGATIVE (NEGATIVE); METHADONE SCREEN, URINE NEGATIVE (NEGATIVE); METHAMPHETAMINES SCREEN, URINE NEGATIVE (NEGATIVE); OPIATE SCREEN, URINE POSITIVE (NEGATIVE); OXYCODONE SCREEN, URINE NEGATIVE (NEGATIVE); PROPOXYPHENE SCREEN, URINE NEGATIVE (NEGATIVE); RBC,URINE None Seen /HPF (0-5); SQUAMOUS EPITHELIAL CELL,UR MANY Squamous (<= Few); TRICYCLIC ANTIDEPRESSANT,URINE NEGATIVE (NEGATIVE)
[2019-01-05 18:50] LABS: BASOPHILS # (AUTO) 0.1 10^3/uL (0.0-0.1); BASOPHILS % (AUTO) 0.8 %; EOSINOPHILS # (AUTO) 0.1 10^3/uL (0.0-0.7); EOSINOPHILS % (AUTO) 0.9 %; HGB - HEMOGLOBIN 13.9 g/dL (12.0-16.0); LYMPHOCYTES # (AUTO) 2.1 10^3/uL (1.5-3.5); LYMPHOCYTES % (AUTO) 20.9 %; MEAN CORPUSCULAR HEMOGLOBIN 29.4 pg (27.0-31.0); MEAN CORPUSCULAR HGB CONC 32.7 g/dL (32.0-36.0); MEAN PLATELET VOLUME 7.4 fL (7.9-10.8); MONOCYTES # (AUTO) 0.6 10^3/uL (0.0-1.0); MONOCYTES % (AUTO) 5.5 %; NEUTROPHILS # (AUTO) 7.3 10^3/uL (1.5-6.6); NEUTROPHILS % (AUTO) 71.9 %; PLT - PLATELET COUNT 461 10^3/uL (130-450); RED BLOOD COUNT 4.72 10^6/uL (4.20-5.40); RED CELL DISTRIBUTION WIDTH 13.8 % (12.0-15.0); WHITE BLOOD COUNT 10.1 x10^3/uL (4.8-10.8)
[2019-01-05 19:03] LABS: ACETAMINOPHEN < 10 ug/mL (10-30); ALBUMIN 4.1 g/dL (3.2-5.5); ALKALINE PHOSPHATASE 117 IU/L (42-121); ALT ALANINE AMINOTRANSFERASE 32 IU/L (10-60); AST ASPARTATE AMINOTRANSFERASE 25 IU/L (10-42); BILIRUBIN,TOTAL 0.4 mg/dL (0.2-1.0); BUN - BLOOD UREA NITROGEN 14 mg/dL (6-20); CALCIUM 9.4 mg/dL (8.5-10.3); CARBON DIOXIDE - CO2 23 mmol/L (21-32); CHLORIDE 107 mmol/L (101-111); CREATININE 0.8 mg/dL (0.4-1.0); GFR - MDRD 87 (>89); GLUCOSE 140 mg/dL (70-100); LIPASE 30 U/L (22-51); SALICYLATE < 6.0 mg/dL; SODIUM 142 mmol/L (135-145); TOTAL PROTEIN 8.4 g/dL (6.7-8.2)
--- NOTE | 2019-01-06 02:15 | TELEPSYCH PHYS NOTE ---
Telepsych Note - CHIEF COMPLAINT/HX OF PRESENT ILLNESS Cheif Complaint and History of Present Illness: Chief Complaint: cut self with a razor HPI: The patient is a 28-year-old female with a history of depression. She reported to the hospital with a cut to her wrist. The patient reported that she came to the hospital to see if she was safe. Approximately two weeks ago, the patient cut her wrist in an attempt to end her life due to depressed mood. When seen my psychiatry, the patient revealed that CPS removed her daughter shortly after one year ago. The daughter currently lives with the father and the patient get supervised visits twice a week. Patient stated that she is very upset at the arrangement and wants her child home. When asked about the cut to the wrist, the patient referred to it as a "misunderstanding." The patient refused to acknowledge the cut as a suicide attempt but also refused to say that it was not. When asked directly if the patient was suicidal, she refused to answer. She was unable to contract for safety and was unable to tell the psychiatrist that she would be safe if discharged. The patient lives with a roommate and the patient stated that she did not tell roommate that she left her why she was leaving. The patient also refused to allow the roommate to be conta cted. "I don't have her number." The patient is not agreeable to inpatient treatment and want to be discharged home. - SI/HI/SELF HARM SI/HI/SELF HARM (CURRENT OR HISTORY OF):: SI SI/HI/Self Harm Text (Current or History of):: SI: one prior suicide attempt 2 weeks ago - VIOLENCE/LEGAL/COLLATERAL Violence - Legal - Collateral: Violence: none Legal: none Collateral: none - DRUG/ALCOHOL HX Substance use/abuse/alcohol text: none - MEDICAL HX Does the pt have a hx of MRSA?: No Endocrine/Autoimmune: HyPOthyroidism Is Patient ?: No - HOME MEDICATIONS Home Meds (as last confirmed): Patient History Medication Instructions Recorded Confirmed Levothyroxine [Synthroid] 100 mcg PO QDAC 01/05/19 01/05/19 busPIRone [Buspar] 5 mg PO BID 01/05/19 01/05/19 - ALLERGIES Allergies (as last confirmed): Allergies Allergy/AdvReac Type Severity Reaction Status Date / Time No Known Drug Allergies Allergy Verified 07/01/18 16:29 - FAMILY PSYCH/SUICIDE/SOCIAL HX-MENTAL Family - Suicide - Social Hx and Mental Status Exam: Family Psychiatric History: none Social History: single, lives with roommate Employment: susie at [employer] Education: HS grad, some college Stressors: lost custody of child History: none Abuse: none Mental Status Examination: Attitude and behavior: cooperative Speech: WNL Affect and mood: sad affect and mood Association and thought processes: linear Thought content: no delusions, + SI, no HI Perception: no hallucinations Sensorium, memory, and orientation: AAOx3 Intellectual functioning: average Insight and judgment: poor - PATIENT PROBLEM LIST (1) Major depressive disorder, recurrent, severe without psychotic behavior Impression: The patient is a 28-year-old female with a history of depression who reported to the hospital after cutting her wrist with a razor. Patient admitted to depressed mood but refused to answer questions about suicidal thoughts. She i s also unable to contract for safety and unable to provide collateral. Patient is not safe for discharge. Refer to inpatient psychiatric care via involuntary commitment. - TREATMENT/PHARMACOLOGICAL RECOMMENDATION Treatment - Pharmacological - Therapy Recommendations: Treatment Recommendations: inpatient care Pharmacological: start Prozac 10 mg daily Therapy: supportive Level of Care: inpatient - TIME SPENT & PROVIDER LOCATION Telepsych consultation conducted via videoconferencing: Yes List names and roles of persons who participated in consult: Matt Grigsby Telepsychiatry Telepsych Provider Location: [place] Time Telepsych consult began: 02:06 Time Telepsych consult completed: 02:22
[2019-01-06 04:14] VITALS: BP 128/83
--- NOTE | 2019-01-06 04:14 | ED Physician Documentation ---
ED Addendum - Addendum Addendum: 01/06/19 04:13 The patient was seen by the [facility]. She spent considerable time with the patient and was able to get information that the tele-psych psychiatrist apparently had not gotten from the patient and also had some insights regarding the patient's development and counseling. The [facility] P felt the patient was safe to go home. She did contract to safety plan with the patient. Apparently the patient did not really know what a safety plan was and so was unable to verbalize that with the tele-psychiatrist. Please refer to the safety plan outlined by the [facility]. It has 5 points on it and the patient states she will follow-up with those.
--- NOTE | 2019-01-07 16:31 | ED Physician Documentation ---
ED Addendum - Addendum Addendum: 01/07/19 16:29 I saw this patient in the emergency department 2 days ago For mental health evaluation. Apparently [facility] Came into the emergency department and evaluated the patient and released her with a safety contract. She is here today asking for a note stating that she can return to work.She will be provided a note stating that she can return to work. 01/07/19 16:35 Dispo, Condition, Instructions - Diposition Disposition: Home, Self Care - Condition Condition: Stable - Referrals Referrals: [facility] [Provider Group] [facility] [Provider Group] - Instructions Departure - Departure Disposition: Home, Self Care Discharge Problem: Suicidal ideation, Superficial laceration Condition: Stable Follow-Up: [facility] [Provider Group] [facility] [Provider Group] Home Medications: Ambulatory Orders Levothyroxine [Synthroid] 100 mcg PO QDAC 01/05/19 busPIRone [Buspar] 5 mg PO BID 01/05/19
== END 2019-01-06 04:16 | disposition home or self-care (01) ==
LOC: ED 17:40
DX: S61.512A Laceration without foreign body of left wrist, initial encounter (principal); X78.8XXA Intentional self-harm by other sharp object, initial encounter; Z91.5 Personal history of self-harm; E03.9 Hypothyroidism, unspecified; F81.9 Developmental disorder of scholastic skills, unspecified; R41.89 Other symptoms and signs involving cognitive functions and awareness; Z86.59 Personal history of other mental and behavioral disorders
CPT/HCPCS: 36415; 80320; 80329; 81001; 81025; 83690; 84436; 84481; 99283; 99284; G0425; Q3014; 80053; 80306; 80307; 81003; 84443; 85025; 87086

== ENCOUNTER 2019-03-21 19:01 | Emergency (ER) | payer MEDICAID, OTHER ==
[2019-03-21] MEDS ORDERED: PENICILLIN G BENZATHINE 600,000 UNIT/ML SYRINGE IM STA (20:17)
--- NOTE | 2019-03-21 20:20 | ED Physician Documentation ---
History of Present Illness - Stated complaint Stated Complaint: SORE THROAT/FEMALE - Chief complaint Chief Complaint: Heent - Additonal information Additional information: This is a 28-year-old female presents with a sore throat. She states that she developed a fairly severe sore throat this morning, and she has been having some pain with swallowing. The pain is currently moderate in severity. She has been able to drink fluids, denies nausea or vomiting. She has felt like she has had a fever but she has measured it and it has been a normal temperature. She denies cough, or congestion. Review of Systems Nose: denies: Rhinorrhea / runny nose Throat: reports: Sore throat Respiratory: denies: Dyspnea, Cough GI: denies: Abdominal Pain PD PAST MEDICAL HISTORY - Past Medical History Endocrine/Autoimmune: HyPOthyroidism - Past Surgical History Past Surgical History: No - Present Medications Home Medications: Ambulatory Orders Medication Instructions Recorded Confirmed Levothyroxine [Synthroid] 100 mcg PO QDAC 01/05/19 01/05/19 busPIRone [Buspar] 5 mg PO BID 01/05/19 01/05/19 - Allergies Allergies/Adverse Reactions: Allergies Allergy/AdvReac Type Severity Reaction Status Date / Time No Known Drug Allergies Allergy Verified 03/21/19 19:04 - Social History Does the pt smoke?: No Smoking Status: Never smoker Does the pt drink ETOH?: Yes Does the pt have substance abuse?: No - Immunizations Immunizations are current?: Yes - POLST Patient has POLST: No PD ED PE NORMAL - Vitals Vital signs reviewed: Yes - General General: Alert and oriented X 3, No acute distress - HEENT HEENT: Other (Tonsils are edematous, posterior pharynx is erythematous with white exudate. Uvula is midline) - Neck Neck: Supple, no meningeal sign, Other (Anterior cervical adenopathy present) - Cardiac Cardiac: Strong equal pulses - Respiratory Respiratory: No respiratory distress - Abdomen Abdomen: Non distended - Derm Derm: Warm and dry - Extremities Extremities: No deformity - Neuro Neuro: Alert and oriented X 3 - Psych Psych: Normal mood, Normal affect Results - Vitals Vitals: Vital Signs - 24 hr 03/21/19 19:03 Temperature 36.8 C Heart Rate 100 Respiratory 16 Rate Blood Pressure 116/98 H O2 Saturation 97 Oxygen O2 Source Room air - Labs Labs: Laboratory Tests 03/21/19 19:08 Group A Strep Rapid POSITIVE H PD MEDICAL DECISION MAKING - ED course Complexity details: considered differential (Strep throat, mononucleosis, viral pharyngitis, viral syndrome) ED course: Patient presents with 1 day of sore throat, she does have erythematous tonsils with an exudate, and anterior lymphadenopathy. She is afebrile, but lacks a cough. Rapid strep was obtained and is positive. Patient elected to receive penicillin IM for treatment. I discussed supportive care, and also discussed return precautions with worsening or new concerning symptoms. Patient agreed and was discharged home. Departure - Departure Disposition: Home, Self Care Clinical Impression: Strep throat Condition: Good Instructions: ED Strep Pharyngitis Conf Follow-Up: Your,PCP [Other] (As needed) Comments: He was seen today for sore throat, you do have strep. You may gargle salt water for symptomatic control, take Tylenol ibuprofen for discomfort. Return to the ED if you have trouble breathing or any other concerning symptoms.
[2019-03-21 20:27] VITALS: BP 135/68
== END 2019-03-21 21:25 | disposition home or self-care (01) ==
LOC: ED 19:01
DX: J02.0 Streptococcal pharyngitis (principal)
CPT/HCPCS: 87430; 99282; 99283

== ENCOUNTER 2019-04-10 19:34 | Emergency (ER) | payer MEDICAID ==
[2019-04-10] MEDS ORDERED: CHERRY SYRUP 10 ML UDC PO ONE (21:05)
[2019-04-10] MEDS ORDERED: DEXAMETHASONE 10 MG/ML VIAL PO STA (21:05)
[2019-04-10] MEDS ORDERED: AMOXICILLIN 250 MG CAPSULE PO STA (21:50)
--- NOTE | 2019-04-10 21:53 | ED Physician Documentation ---
PD HPI HEENT - Stated complaint Stated Complaint: SORE THROAT - Chief complaint Chief Complaint: Heent - History obtained from History obtained from: Patient - History of Present Illness Timing - onset: Enter time (0900), Today Timing - duration: Hours Timing - details: Gradual onset, Still present Location: Throat Improves: Medication Worsens: Swalllowing Associated symptoms: Congestion, Swollen nodes, Headache Similar symptoms before: Diagnosis (strep) Recently seen: Emergency Dept - Additional information Additional information: Previously well 28-year-old female has developed strep throat about 10 days ago she was treated in the emerge department with a injection of penicillin and she has had recurrence of her symptoms beginning this morning. She has a sore throat and swelling of the lymph nodes on the right side. She has not had a cough she has not had vomiting. Review of Systems Constitutional: reports: Chills. denies: Fever Eyes: denies: Decreased vision Ears: denies: Ear pain Nose: reports: Congestion Throat: reports: Sore throat Cardiac: denies: Chest pain / pressure Respiratory: denies: Dyspnea, Cough GI: denies: Abdominal Pain, Nausea, Vomiting : denies: Dysuria PD PAST MEDICAL HISTORY - Past Medical History Endocrine/Autoimmune: HyPOthyroidism - Past Surgical History Past Surgical History: No - Present Medications Home Medications: Ambulatory Orders Medication Instructions Recorded Confirmed Levothyroxine [Synthroid] 100 mcg PO QDAC 01/05/19 01/05/19 busPIRone [Buspar] 5 mg PO BID 01/05/19 01/05/19 Amoxicillin 875 mg PO BID #20 tablet 04/10/19 - Allergies Allergies/Adverse Reactions: Allergies Allergy/AdvReac Type Severity Reaction Status Date / Time No Known Drug Allergies Allergy Verified 04/10/19 19:56 - Social History Does the pt smoke?: No Smoking Status: Never smoker Does the pt drink ETOH?: Yes Does the pt have substance abuse?: No - Immunizations Immunizations are current?: Yes - POLST Patient has POLST: No PD ED PE NORMAL - Vitals Vital signs reviewed: Yes (normal ) - General General: Alert and oriented X 3, No acute distress, Well developed/nourished - HEENT HEENT: Atraumatic, PERRL, EOMI, Ears normal, Moist mucous membranes, Other (The tonsils are 2+ and exudative ) - Neck Neck: Supple, no meningeal sign, No bony TTP, Other (right submandibular adenopathy is mildly tender. 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, No motor deficit, No sensory deficit, Normal speech Eye Opening: Spontaneous Motor: Obeys Commands Verbal: Oriented GCS Score: 15 - Psych Psych: Normal mood, Normal affect Results - Vitals Vitals: Vital Signs - 24 hr 04/10/19 19:54 Temperature 37.1 C Heart Rate 86 Respiratory 16 Rate Blood Pressure 113/66 O2 Saturation 98 Oxygen O2 Source Room air - Labs Labs: Laboratory Tests 04/10/19 19:58 Group A Strep Rapid POSITIVE H PD MEDICAL DECISION MAKING - ED course Complexity details: considered differential, d/w patient ED course: 28-year-old female with a positive rapid strep and sore throat duration one day was recently treated with IM penicillin. Today we will treat her with p.o. amoxicillin for a 10-day course. She is administered 750 mg here today we will begin her on 875 twice daily she is given a 10 mg dose of dexamethasone as well. Departure - Departure Disposition: 01 Home, Self Care Clinical Impression: Strep throat Condition: Stable Instructions: ED Strep Pharyngitis Conf Follow-Up: [facility] [Provider Group] Prescriptions: Amoxicillin 875 mg PO BID #20 tablet Forms: Activity restrictions
[2019-04-10 22:31] VITALS: BP 130/72
== END 2019-04-10 22:20 | disposition home or self-care (01) ==
LOC: ED 19:34
DX: J02.0 Streptococcal pharyngitis (principal)
CPT/HCPCS: 87430; 99283; 99284; A9270